=== PATIENT | male | born 1990 | race Caucasian/White ===

== ENCOUNTER 2025-01-26 08:53 | Emergency (ER) | payer MEDICAID ==
[~2025-01-26] VITALS: Ht 210.8 cm; Wt 118.2 kg
[2025-01-26 08:54] VITALS: BP 137/93; PULSE 87; RESP 18; TEMP 98.8; O2SAT 94
[2025-01-26] MEDS ORDERED: IBUP-1554 PO (09:48)
== END 2025-01-26 10:25 | disposition home or self-care (01) ==
LOC: EMS 08:53
DX: S00.03XA Contusion of scalp, initial encounter (principal); Y08.89XA Assault by other specified means, initial encounter; Y93.89 Activity, other specified; Y92.89 Other specified places as the place of occurrence of the external cause; Y99.8 Other external cause status
CPT/HCPCS: 99282; Z7502